=== PATIENT | female | born 1975 | race African-American/Black ===

== ENCOUNTER 2021-04-30 08:21 | Emergency (ER) | payer MEDICAID ==
[~2021-04-30] VITALS: Ht 167.6 cm; Wt 91.0 kg
[2021-04-30] MEDS ORDERED: IBUPROFEN 600MG TABLET PO STA (08:47)
[2021-04-30 09:20] VITALS: BP 114/68
[2021-04-30 09:36] LABS: CLARITY URINE CLEAR (CLEAR); COLOR URINE YELLOW (YELLOW); KETONES URINE NEGATIVE (NEGATIVE); LEUKOCYTE ESTERASE URINE NEGATIVE (NEGATIVE); NITRITE URINE NEGATIVE (NEGATIVE); OCCULT BLOOD URINE NEGATIVE (NEGATIVE); PH URINE 6.5 (4.5-8.0); PROTEIN URINE NEGATIVE (NEGATIVE); SPECIFIC GRAVITY URINE 1.013 (1.005-1.030); UROBILINOGEN URINE 0.2 E.U./dL (0.2-1.0)
[2021-04-30 09:38] LABS: BASOPHILS % 1.2 % (0.0-2.0); EOSINOPHILS % 3.4 % (0.0-5.0); HEMATOCRIT. 37.6 % (36.0-48.0); HEMOGLOBIN. 12.2 g/dL (12.0-16.0); LYMPHOCYTES % 38.3 % (20.0-50.0); MEAN CORPUSCULAR VOLUME 83.2 fL (81.0-99.0); MEAN PLATELET VOLUME 10.3 fl (7.4-10.4); NEUTROPHILS % 51.1 % (40.0-76.0); PLATELET 194 x1000/uL (130-400); RED BLOOD CELL COUNT 4.51 mill/uL (4.2-5.4); RED CELL DISTRIBUTION WIDTH 13.4 % (11.6-14.6)
[2021-04-30 09:48] LABS: CHLORIDE 105 mEq/L (98-107)
== END 2021-04-30 11:24 | disposition home or self-care (01) ==
LOC: ER 08:38
DX: M79.18 Myalgia, other site (principal)
CPT/HCPCS: 36415; 80053; 81003; 85025; 87426; 93005; 99284